=== PATIENT | male | born 1990 | race Caucasian/White ===

== ENCOUNTER 2016-03-25 10:51 | Outpatient (CLI) | payer BC ==
[~2016-03-25] VITALS: Ht 172.7 cm; Wt 52.7 kg
--- NOTE | ~2016-03-25 | HEMODYNAMI ---
PATIENT:ZURI STUBBS MEDICAL RECORD: [id number] : 89 LOCATION:[facility] ADMISSION DATE: 03/25/16 Generatedon:03/25/201613:46 Patient name: ZURI STUBBS Patient #: [id number] SSN: [id number] : 1990 Date of study: 03/25/2016 Page: Of Hemodynamic Procedure Report Patient Data Patient Demographics Procedure consent was obtained First Name: ZURI Gender: Male Last Name: EVELYNE : 1990 Middle Initial: DAVION Age: 25 year(s) Patient #: [id number] Race: SSN: [id number] Additional ID: [id number] Contact details Address: [address] [place] [address] STREET State: [place] City: [facility] Zip code: [address] Admission Admission Data Admission Date: 03/25/2016 Admission Time: 10:51 Arrival Date: 03/25/2016 Arrival Time: 13:00 Admit Source: Other Insurance Payor: Private health insurance Height (in.): 68 BSA: 1.62 (m2) Height (cm.): 172.72 BMI: 17.64 (kg/m2) Weight (lbs.): 116 Weight (kg.): 52.62 Lab Results Lab Result Date: 03/25/2016 Lab Result Time: 0:00 Biochemistry Name Units Result Min Max BUN mg/dl 11 --(-*--)-- 7 18 Creatinine mg/dl 0.8 --(-*--)-- 0.6 1.3 CBC Name Units Result Min Max Hemoglobin g/dl 16.5 --(--*-)-- 13.5 17.5 Procedure Procedure Types Cath Procedure Diagnostic Procedure CARLOS EDUARDO Procedure Description Procedure Date Procedure Date: 03/25/2016 Procedure Start Time: 13:06 Procedure End Time: 13:21 Procedure Staff Name Function Jovon Olmedo MD Performing Physician Kell Hurt RT Scrub Peggy Biswas RN Nurse Colleen Amaya RT Monitor Roberto Evangelista RT Welding Machine Tender Procedure Data Cath Procedure Fluoroscopy Diagnostic fluoroscopy Total fluoroscopy Time: 0 time: 0 min min Diagnostic fluoroscopy Total fluoroscopy dose: 0 dose: 0 mGy mGy Contrast Material Contrast Material Type Amount (ml) Isovue 370 0 Estimated blood loss: 5 ml Procedure Complications No complications Procedure Medications Medication Administration Route Dosage Oxygen NC 2 l/min Hurricaine Dodge P.O. Sprays Refer to Anesthesia Notes for Sedation Medications Hemodynamics Rest BSA: 1.62 (m2) HGB: 16.5 (g/dl) O2 Consumption: Estimated: 210.56 (ml/min) O2 Consumption indexed: Estimated:129.98 (ml/min/m) Heart Rate: 74 (bpm) Snapshots Pre Cath Intra NCS Post Cath Vital Signs Time Heart Resp SPO2 NIBP Rhythm Pain Sedation Rate (ipm) (%) (mmHg) Status Level (bpm) 12:50:11 79 15 100 110/66(98) NSR 0 (11) 10(A) , No pain 12:54:14 77 16 98 121/63(92) NSR 0 (11) 10(A) , No pain 12:58:24 74 16 99 118/58(88) NSR 0 (11) 10(A) , No pain 13:03:23 71 16 97 Measuring NSR 0 (11) 10(A) , No pain 13:03:46 78 16 96 113/65(87) NSR 0 (11) 10(A) , No pain 13:07:54 85 16 100 111/56(82) NSR 0 (11) 7(A) , No pain 13:11:57 96 17 99 113/68(88) NSR 0 (11) 6(A) , No pain 13:16:28 92 16 98 Disturbed NSR 0 (11) 6(A) , No pain 13:20:21 86 16 98 91/42(60) NSR 0 (11) 6(A) , No pain 13:25:14 80 21 98 87/39(67) NSR 0 (11) 6(A) , No pain 13:30:15 86 19 97 87/34(57) NSR 0 (11) 6(A) , No pain 13:34:19 72 19 98 87/34(60) NSR 0 (11) 6(A) , No pain 13:38:23 68 17 100 91/38(64) NSR 0 (11) 7(A) , No pain 13:44:15 68 16 100 102/44(74) NSR 0 (11) 9(A) , No pain Medications Time Medication Route Dose Verified Delivered Reason Notes Effective ness by by 12:50:12 Oxygen NC 2 Jovon Woods Per l/min St. Stefan Biswas RN physician 12:50:17 Hurricaine P.O. Sprays Jovon Sigala Per Dodge [facility] physician MD MENDOZA 12:50:24 Refer to Jovon Sigala Per Anesthesia [facility] physician Notes for MD MENDOZA Sedation Medications Procedure Log Time Note 12:30:07 Peggy Biswas RN sent for patient. Start room use. 12:38:25 Informed consent obtained and on chart 12:39:29 Admit Source: Other 12:39:39 Arrival Date: 03/25/2016 1:00:00 PM 12:39:46 Insurance Payor : Private health insurance 12:40:16 Diagnostic Cath Status : Elective 12:43:02 Lab Result : BUN 11 mg/dl 12:43:02 Lab Result : Hemoglobin 16.5 g/dl 12:43:02 Lab Result : Creatinine 0.8 mg/dl 12:43:17 Time tracking: Regular hours 12:43:21 Plan of Care:Hemodynamics will remain stable., Cardiac rhythm will remain stable., Comfort level will be maintained., Respiratory function will remain adequate., Patient/ family verbilizes understanding of procedure., Procedure tolerated without complication., Recovers from procedure without complications.. 12:45:42 Patient received from Outpatients to [facility] 1 Alert and oriented. Tansferred to table in Supine position. 12:45:43 Warm blankets applied, and ethan hugger turned on for patient comfort. 12:45:44 Correct patient and procedure confirmed by team. 12:45:45 ECG and BP/O2 sat monitors applied to patient. 12:46:38 Patient Height : 172.72 inches 12:46:42 Patient Weight : 52.62 lbs 12:48:55 Vital chart was started 12:48:58 Baseline sample Acquired. 12:49:03 Rhythm: sinus rhythm 12:49:05 Full Disclosure recording started 12:49:13 H&P Date Dictated: 03/19/2016 Within 30 days and on chart., H&P Addendum completed by physician on day of procedure. (MUST COMPLETE FOR ALL OUTPATIENTS). 12:49:15 Pre-procedure instructions explained to patient. 12:49:15 Pre-op teaching completed and patient verbalized understanding. 12:49:16 Family in waiting room. 12:49:18 Patient NPO since Midnight. 12:49:28 Is the patient allergic to Iodine/contrast media? No. 12:49:36 Was the patient premedicated? No 12:49:46 Is patient on blood thinner?No 12:49:47 Patient diabetic? No. 12:49:50 Previous problem with sedation/anesthesia? No ? 12:49:55 Snore? No 12:49:56 Sleep apnea? No 12:49:57 Deviated septum? No 12:49:58 Opens mouth fully? Yes 12:49:58 Sticks out tongue? Yes 12:50:00 Airway obstruction? No ? 12:50:04 Dentures? No ? 12:50:08 Pre procedure: right dorsailis pedis pulse 1+ Palpable, but thready & weak; easily obliterated 12:50:10 Patient pain scale 0/10 ?. 12:50:12 Oxygen 2 l/min NC was given by Peggy Biswas RN; Per physician; 12:50:17 Hurricaine Dodge Sprays P.O. was given by Jovon Olmedo MD; Per physician; 12:50:21 IV patent on arrival in left forearm with 0.9% NaCl at O. 12:50:24 Refer to Anesthesia Notes for Sedation Medications was given by Jovon Olmedo MD; Per physician; 12:50:26 Lab results completed and on chart. 12:50:39 Alarms reviewed by R. N. 12:50:39 Sharps counted by scrub and verified by R.N. 12:52:21 Dr. Hackett present and monitoring patient for TIVA. 12:52:44 Giancarlo Matthews Embedded Engineer present for CARLOS EDUARDO. 13:03:41 Physician arrived 13:03:42 --------ALL STOP TIME OUT------ 13:03:42 Final Timeout: patient, procedure, and site verified with staff and physician. All members of the team are in agreement. 13:04:37 Physical assessment completed. ASA score P 2 - A patient with mild systemic disease as per Jovon Olmedo MD. 13:04:49 Sedation plan: TIVA Propofol 13:06:48 Procedure started. 13:07:37 CARLOS EDUARDO started. 13:16:50 CARLOS EDUARDO completed. 13:16:58 Procedure ended.(Physican Out) 13:17:14 Fluoroscopy time 00.00 minutes. 13:17:17 Fluoroscopy dose: 0 mGy 13:17:17 Flurop Dose total: 0 13:17:22 Contrast amount:Isovue 370 0ml. 13:17:23 Sharps counted by scrub and verified by R.N. 13:17:25 Insertion/operative site no bleeding no hematoma. 13:17:42 Post Procedure Pulses reassessed and unchanged 13:17:48 Post procedure rhythm: unchanged. 13:17:51 Estimated blood loss: 5 ml 13:17:52 Post procedure instruction explained to patient.Patient verbalizes understanding. 13:17:52 Patient needs reinforcement of post procedure teaching. 13:17:57 Procedure and supply charges have been captured, reviewed, submitted and are correct. 13:18:02 Procedure Complication : No complications 13:21:35 Vital chart was stopped 13:21:36 See physician's report for complete and final results. 13:21:41 Report given to Post Procedure Room. 13:21:44 Patient transfered to Post Procedure Room with Stretcher. 13:21:47 Procedure ended. 13:21:47 Full Disclosure recording stopped 13:21:54 End room use (Document Last) 13:29:22 Vital chart was started 13:46:49 Vital chart was stopped Signature Audit [place] Stage Time Signature Unsigned Intra-Procedure 03/25/2016 Colleen Amaya 1:46:46 PM RT(R) Signatures Monitor : Colleen Amaya RT Signature : Date : Time : [facility] [address] [place] [address]
[2016-03-25 11:34] LABS: EOSINOPHILS 1.7 % (0-7); HEMATOCRIT 48.3 % (42.0-54.0); HEMOGLOBIN 16.5 g/dL (13.5-17.5); IMMATURE GRANULOCYTES 0.2 % (0-5); LYMPHOCYTES 30.6 % (15-50); MCHC 34.2 g/dL (31.0-37.0); MCV 93.8 fL (80.0-100.0); MEAN PLATELET VOLUME 9.7 fL (7.4-10.4); MONOCYTES 11.1 % (2-11); NEUTROPHILS 55.4 % (40-80); PLATELET COUNT 261 10x3/uL (130-400); RBC 5.15 10x6/uL (4.20-6.10); RDW 12.5 % (11.5-14.5); WBC 6.1 10x3/uL (4.8-10.8)
[2016-03-25 11:42] LABS: CALC OSMOLALITY 276 mosm/kg (275-300); CALCIUM 9.4 mg/dL (8.5-10.1); CARBON DIOXIDE 29.3 mmol/L (21.0-32.0); CHLORIDE - SERUM 102 mmol/L (98-107); CREATININE - SERUM 0.8 mg/dL (0.6-1.3); GLUCOSE 92 mg/dL (74-106); POTASSIUM - SERUM 3.8 mmol/L (3.5-5.1); SODIUM 139 mmol/L (136-145); UREA NITROGEN 11 mg/dL (7-18); eGFR NON AFRICAN AMERICAN > 90 mL/min (90-120)
[2016-03-25 12:02] VITALS: BP 129/73; Ht 172.7 cm; Wt 52.7 kg
--- NOTE | 2016-03-25 14:00 | NUR ---
HR 65 NSR CHEST PAIN DENIED BP 105/56 ALERT AND ORIENTED TALKING TO FAMILY AT SIDE. NAUSEA DENIED PATIENT REQUESTING WATER TO DRINK INSTRUCTED PATIENT NO EATING OR DRINKING FOR 2 HRS.
--- NOTE | 2016-03-25 14:25 | NUR ---
PIV REMOVED FROM LEFT ARM WITH DRESSING APPLIED CHEST PAIN DENIED. PATIENT UP TO GET DRESSED FOR DISCHARGE FAMILY AT SIDE
--- NOTE | 2016-03-25 14:26 | NUR ---
DISCHARGE INSTRUCTIONS GONE OVER WITH PATIENT AND FAMILY LEFT VIA WC TO [facility] FOR FAMILY TO DRIVE HOME
--- NOTE | 2016-03-29 13:25 | TEE ---
PATIENT:ZURI STUBBS MEDICAL RECORD: [id number] LOCATION:D.OPS AGE OF PATIENT: 25 ADMISSION DATE: 03/25/16 SEX: M REFERRING PHYSICIAN: INTERPRETING PHYSICIAN: ANN WINKLER MD TRANSESOPHAGEAL ECHOCARDIOGRAM CARLOS EDUARDO CHARGE Y INDICATIONS: ASSESS MITRAL VALVE PROLAPE AND MITRAL REGURG PREMEDICATIONS: PATIENT'S RESPONSE PROCEDURE DOPPLER MEASUREMENTS: LVIT LA PA RA LVOT RVOT Asc. Ao AV Gradient Peak AV Mean AV Area MV Gradient Peak MV Mean MV Area INTERPRETATION: Doppler: 2-D: EF 60% PLUS , MVP AND TVP NOTED COLOR FLOW DOPPLER MILD+MR NORMAL SALINE STUDY: MISCELLANOUS: DIAGNOSIS: PLAN: Bread Baker:10 Dr. Olmedo Chief Passenger Ship Steward/Stewardess: Jessica YEUNG COMMENTS: DATE OF SERVICE: 03/25/2016 Transesophageal Note PROCEDURE IN DETAIL: After general sedation via TIVA via anesthesia, transesophageal Omniplane probe was placed in the esophagus, proximal stomach without difficulty. FINDINGS: No LVH. LV internal dimensions are normal. Wall motion is normal. TRANSESOPHAGEAL ECHOCARDIOGRAM REPORT [id number] ZURI STUBBS EF is greater than 55%. Aortic valve is tricuspid. No stenosis by Doppler interrogation, good excursion. No significant AI. Left atrium appears normal. Left atrial appendage is well visualized with good contractility. Mitral valve shows posterior leaflet prolapse with a posterior directed jet however, this is only mild in intensity. Right-sided chambers appear grossly normal. Tricuspid and pulmonic valves appear normal with no significant valvular pathology. TRANSINT:[id number] Voice Confirmation ID: [id number] DOCUMENT ID: [id number] at 1325 CC: [id number] DICTATION DATE: 03/25/16 1327 PATIENT TRANSPORT ORDERLY: 03/25/16 1635 DEP CLI 03/25/16 [facility] [address] [id number]
== END 2016-03-25 14:28 | disposition home or self-care (01) ==
LOC: D.OPS 10:51 → D.ECHO 10:51 → D.OPS 14:28
PROVIDERS: Anesthesiology
DX: I34.1 Nonrheumatic mitral (valve) prolapse (principal)